=== PATIENT | female | born 1980 ===

== ENCOUNTER → 2017-06-27 | Outpatient (CLI) | payer OTHER ==
[~2017-06-27] VITALS: Ht 152.4 cm; Wt 72.6 kg
[~2017-06-27] MED LIST: KEFLEX500 MG; KETOROLAC TROME10 MG PO; TESSALON PERLE100 M1 PO; VENTOLIN HFA18 GM
== END | disposition home or self-care (01) ==
LOC: PPHC 18:38
DX: R07.89 Other chest pain (principal)